=== PATIENT | female | born 1965 | race Caucasian/White ===

== ENCOUNTER → 2017-10-08 | Outpatient (CLI) | payer OTHER ==
[2013-10-06 11:46] VITALS: BMI 25.3
[~2017-10-08] MED LIST: CYCL1DRO6 OP; EST3 PO; ESTR10TA PO; ESTR10TA4 VG; IBUP800T37 PO; OXYC-865 PO; OXYGENHOME INH
[2017-10-08 11:08] LABS: PLATELET COUNT, AUTOMATED 163 K/uL (150-450)
--- NOTE | 2017-10-08 11:30 | RADIOLOGY IMAGING REPORT ---
FACILITY: [facility] - [place] PATIENT NAME: Yasmin Delong : 1965 MR: [id number] V: [id number] EXAM DATE: ORDERING PHYSICIAN: MADELINE FELIZ TECHNOLOGIST: Location: [facility] [place] Patient: Yasmin Delong : 1965 Visit/Account:[id number] Date of Sevice: 10/08/2017 SHOULDERS BILAT 2 OR MORE VIEW COMPARISON: None. HISTORY: :Abnormal right MRI, left pain TECHNIQUE: 3 views right shoulder and 3 views left shoulder RIGHT SHOULDER FINDINGS: BONES: Normal alignment of the glenohumeral and acromioclavicular joints with no fractures or degene rative changes. Visualized ribs are intact. SOFT TISSUES: Negative. EFFUSION: None visible. OTHER: Negative. LEFT SHOULDER FINDINGS: BONES: Normal alignment of the glenohumeral and acromioclavicular joints with no fractures or bone l esions or degenerative changes. The visualized ribs are intact. SOFT TISSUES: Negative. EFFUSION: None visible. OTHER: Negative. IMPRESSION: Normal plain film appearance of both shoulders. Report Dictated By: Adonis Schrader at 10/08/2017 11:23 AM Report E-Signed By: Adonis Schrader at 10/08/2017 11:25 AM WSN:[id number]
[2017-10-08 11:33] LABS: LDL CHOLESTEROL 111 mg/dl
== END ==
LOC: LAB 10:10
PROVIDERS: ATTEND Emergency Medicine
DX: M79.671 Pain in right foot (principal); E66.3 Overweight; R63.5 Abnormal weight gain; M25.519 Pain in unspecified shoulder
CPT/HCPCS: 36415; 82040; 82247; 82306; 82310; 82374; 82435; 82465; 82550; 82565; 82607; 82947; 83036; 83718; 84075; 84132; 84155; 84295; 84443; 84450; 84460; 84478; 84520; 85025